=== PATIENT | male | born 1945 | race Asian ===

== ENCOUNTER 2016-09-28 13:29 | Emergency (ER) | payer OTHER ==
[~2016-09-28] VITALS: Ht 175.3 cm; Wt 81.6 kg
[2016-09-28 13:30] VITALS: BP_SYST 115
[2016-09-28] MEDS ORDERED: NACL 0.9% 1,000 ML IV ONE (14:00)
[2016-09-28 14:11] LABS: BASOPHILS # (AUTO) 0.1 K/uL (0.0-0.2); BASOPHILS % (AUTO) 1.9 % (0.0-2.0); EOSINOPHILS # (AUTO) 0.2 K/uL (0.0-0.4); EOSINOPHILS % (AUTO) 2.6 % (0.0-4.0); HEMATOCRIT 44.7 % (36-54); HEMOGLOBIN 14.6 g/dL (14.0-18.0); LYMPHOCYTES # (AUTO) 0.8 K/uL (1.0-5.5); MEAN CORPUSCULAR HEMOGLOBIN 28 pg (27-31); MEAN CORPUSCULAR HGB CONC 33 % (32-36); MEAN CORPUSCULAR VOLUME 86 fL (79.0-98.0); MONOCYTES # (AUTO) 0.5 K/uL (0.0-1.0); MONOCYTES % (AUTO) 6.4 % (1.7-9.3); NEUTROPHILS % (AUTO) 78.1 % (40.0-70.0); RED BLOOD CELL COUNT(AUTO) 5.18 MIL/uL (4.2-6.2); RED CELL DISTRIBUTION WIDTH 13.2 % (9.0-15.0); WHITE BLOOD COUNT (AUTO) 7.6 K/uL (4.8-10.8)
[2016-09-28 14:21] LABS: CALCIUM 8.6 mg/dL (8.4-11.0); CREATININE 1.15 mg/dL (0.55-1.30); POTASSIUM 4.9 mmol/L (3.5-5.1)
[2016-09-28 14:26] LABS: ALBUMIN 3.5 g/dL (3.4-4.8); INR 2.1 (0.80-1.20); TOTAL BILIRUBIN 0.4 mg/dL (0.0-1.0); TOTAL PROTEIN, SERUM 7.2 g/dL (6.4-8.3)
[2016-09-28 14:37] LABS: PROTHROMBIN TIME 23.8 SECS (9.5-12.5)
[2016-09-28 15:13] LABS: PLATELET COUNT (AUTO) 168 K/uL (130-430)
[2016-09-28 15:30] VITALS: BP_SYST 121
== END 2016-09-28 15:30 | disposition home or self-care (01) ==
LOC: SED 13:29
DX: R55 Syncope and collapse (principal); E11.9 Type 2 diabetes mellitus without complications; Z95.2 Presence of prosthetic heart valve
CPT/HCPCS: 36415; 71010; 80053; 84484; 85025; 85610; 85730; 93005; 96360; 99285; J7030